=== PATIENT | male | born 1980 | race Caucasian/White ===

== ENCOUNTER 2016-12-17 06:36 | Emergency (ER) | payer SELFPAY ==
[~2016-12-17] VITALS: Ht 182.9 cm; Wt 88.3 kg
[2016-12-17 07:31] LABS: HEMATOCRIT 53.3 % (38.0-50.0); MCH 34.5 PG (29.0-34.0); MCHC 34.9 G/DL (30.0-36.0); MCV 98.9 FL (86-99); PLATELET COUNT 161 K/uL (156-360); RBC DIS.WIDTH-CV 12.1 % (11.8-14.6); RBC DIS.WIDTH-SD 44.4 % (39-53); RED BLOOD COUNT 5.39 M/uL (4.00-5.50); WHITE BLOOD COUNT 5.1 K/uL (4.1-10.2)
[2016-12-17 08:21] LABS: CHLORIDE 104 mEq/L (99-109); POTASSIUM 3.7 mEq/L (3.7-5.4); SODIUM 140 mEq/L (136-147)
[2016-12-17 08:23] LABS: GLUCOSE 118 mg/dL (70-99)
[2016-12-17 08:25] LABS: ANION GAP 16 MEQ/L (2-14); TOTAL BILIRUBIN 0.5 mg/dL (0.0-1.0)
[2016-12-17 08:27] LABS: ALKALINE PHOSPHATASE 78 IU/L (3-129)
[2016-12-17 08:28] LABS: UREA NITROGEN (BUN) 8 mg/dL (9-23)
[2016-12-17 08:29] LABS: GFR ESTIMATE (CALCULATED) > 59 mL/min/
[2016-12-17 08:30] LABS: LIPASE 30 U/L (1.0-51.0)
[2016-12-17] MEDS ORDERED: ATIVAN0.5 MG PO ×2 (08:33→11:26)
[2016-12-17 10:27] LABS: ADD MIUA? YES; BILIRUBIN NEGATIVE; BLOOD NEGATIVE; COLOR YELLOW ((YELLOW)); GLUCOSE (STRIP) NEGATIVE; KETONES 5; LEUKOCYTES NEGATIVE; NITRITE NEGATIVE; PROTEIN (STRIP) 30; SPECIFIC GRAVITY 1.015 (1.000-1.030); UROBILINOGEN 0.2 MG/DL (0.2-1.0)
[2016-12-17 10:38] LABS: BACTERIA RARE /HPF; CALCIUM OXALATE CRYSTALS 1+ /HPF; EPITHELIAL CELLS RARE /HPF; MUCUS TRACE /LPF; RED BLOOD CELLS 0-5 /HPF (0-5); UCUL ADDED? NO; UNCLASSIFIED CASTS 0-5 /LPF; WHITE BLOOD CELLS 0-5 /HPF (0-5)
[2016-12-17] MEDS ORDERED: ZOFRAN ODT4 MG PO (11:14)
[2016-12-17 11:35] VITALS: BP 99/67
== END 2016-12-17 11:36 | disposition home or self-care (01) ==
LOC: EME 06:36
DX: B34.9 Viral infection, unspecified (principal); R79.89 Other specified abnormal findings of blood chemistry; R11.2 Nausea with vomiting, unspecified; R42 Dizziness and giddiness; R20.2 Paresthesia of skin; F10.239 Alcohol dependence with withdrawal, unspecified; K76.0 Fatty (change of) liver, not elsewhere classified; F17.200 Nicotine dependence, unspecified, uncomplicated
CPT/HCPCS: 74177; 80053; 81003; 83690; 85027; 99281; 99283; J1885; J2405; J7030